=== PATIENT | male | born 1990 | race Caucasian/White ===

== ENCOUNTER 2020-04-19 21:12 | Outpatient (CLI) | payer OTHER | END 2020-04-19 21:13 | disposition critical access hospital (66) | LOC: EMS 21:12 | PROVIDERS: ATTEND Surgery | DX: R41.82 Altered mental status, unspecified (principal) | CPT/HCPCS: A0425; A0427 ==

== ENCOUNTER 2020-04-19 21:29 | Emergency (ER) | payer OTHER ==
--- NOTE | 2020-04-19 21:34 | ED Physician Documentation ---
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 s.o. called 911 and told EMS patient drank approximately 3/4 of a bottle of marijuana-containing soda (100mg total in bottle, so approximately 75mg intake). This was approximately 2 hours ASSISTANT MERCHANDISER. He subsequently told s.o. he didn't feel well and lay down and exhibited decreasing level of responsiveness and thus she called 911. He arrives nonverbal but in NAD. He follows simple commands (open eyes, open mouth), but does not answer any questions and falls asleep rapidly. Review of Systems Unable to obtain: Intoxicated PD PAST MEDICAL HISTORY - Past Medical History Past Medical History: No - Present Medications Home Medications: Ambulatory Orders Medication Instructions Recorded Confirmed Home Medications Unobtainable 04/19/20 04/19/20 [HOME MEDICATIONS UNOBTAINABLE] - Allergies Allergies/Adverse Reactions: Allergies Allergy/AdvReac Type Severity Reaction Status Date / Time Unable to Assess Allergy Verified 04/19/20 21:39 - Living Situation Living Situation: reports: With spouse/s.o. Living Arrangement: reports: At home PD ED PE NORMAL - Vitals Vital signs reviewed: Yes - General General: No acute distress, Well developed/nourished, Other (asleep, awakes to voice, follows few simple commands but does not verbalize, falls asleep rapidly) - HEENT HEENT: Atraumatic, PERRL, EOMI, Moist mucous membranes - Neck Neck: Supple, no meningeal sign - Cardiac Cardiac: RRR, No murmur - Respiratory Respiratory: No respiratory distress, Clear bilaterally - Abdomen Abdomen: Soft, Non tender, Non distended - Derm Derm: Normal color, Warm and dry - Neuro Eye Opening: To Voice Motor: Obeys Commands Verbal: None GCS Score: 10 Results - Vitals Vitals: Vital Signs - 24 hr 04/19/20 04/19/20 04/20/20 21:30 22:57 03:31 Temperature 36.4 C L Heart Rate 69 56 L 80 Respiratory 14 16 14 Rate Blood Pressure 126/69 109/64 O2 Saturation 96 97 97 04/20/20 03:47 Temperature Heart Rate 81 Respiratory 18 Rate Blood Pressure 121/68 O2 Saturation 99 Oxygen O2 Source Room air - Labs Labs: Laboratory Tests 04/19/20 04/19/20 21:43 21:43 WBC 8.8 RBC 4.39 L Hgb 13.4 L Hct 39.0 L MCV 88.8 MCH 30.5 MCHC 34.4 RDW 11.9 L Plt Count 207 MPV 10.2 Neut # (Auto) 4.8 Lymph # (Auto) 3.2 [place] # (Auto) 0.5 Eos # (Auto) 0.1 Baso # (Auto) 0.1 Absolute Nucleated RBC 0.00 Nucleated RBC % 0.0 Sodium 136 Potassium 3.1 L Chloride 101 Carbon Dioxide 27 Anion Gap 8.0 BUN 19 Creatinine 1.2 Estimated GFR (MDRD) 71 L Glucose 131 H Calcium 9.0 Total Bilirubin 0.5 AST 22 ALT 19 Alkaline Phosphatase 52 Total Protein 6.8 Albumin 4.6 Globulin 2.2 Albumin/Globulin Ratio 2.1 Lipase 35 Ethyl Alcohol < 5.0 PD MEDICAL DECISION MAKING - ED course Complexity details: reviewed results, re-evaluated patient, considered differential, d/w patient ED course: patient became increasingly awake and alert during ED stay, conversant. He tells me he recalls the events of the evening. Denies pain, denies injury. He says he has had the same product (drink with marijuana in it) before without same effect as what happened tonight. Denies other ingestions such as alcohol or other drugs. Departure - Departure Disposition: 01 Home, Self Care Clinical Impression: Overdose of marijuana Condition: Good Instructions: ED Overdose Accidental Discharge Date/Time: 04/20/20 04:25
[2020-04-19] MEDS ORDERED: SODIUM CHLORIDE 0.9% 1,000 ML IV STA (21:38)
[2020-04-19 21:48] LABS: BASOPHILS # (AUTO) 0.1 10^3/uL (0.0-0.1); BASOPHILS % (AUTO) 0.6 %; EOSINOPHILS # (AUTO) 0.1 10^3/uL (0.0-0.7); EOSINOPHILS % (AUTO) 1.4 %; HGB - HEMOGLOBIN 13.4 g/dL (14.0-18.0); LYMPHOCYTES # (AUTO) 3.2 10^3/uL (1.5-3.5); LYMPHOCYTES % (AUTO) 36.5 %; MEAN CORPUSCULAR HEMOGLOBIN 30.5 pg (27.0-31.0); MEAN CORPUSCULAR HGB CONC 34.4 g/dL (32.0-36.0); MEAN CORPUSCULAR VOLUME 88.8 fL (80.0-94.0); MEAN PLATELET VOLUME 10.2 fL (7.4-11.4); MONOCYTES # (AUTO) 0.5 10^3/uL (0.0-1.0); MONOCYTES % (AUTO) 6.2 %; NEUTROPHILS # (AUTO) 4.8 10^3/uL (1.5-6.6); NEUTROPHILS % (AUTO) 54.8 %; PLT - PLATELET COUNT 207 10^3/uL (130-450); RED BLOOD COUNT 4.39 10^6/uL (4.70-6.10); RED CELL DISTRIBUTION WIDTH 11.9 % (12.0-15.0); WHITE BLOOD COUNT 8.8 x10^3/uL (4.8-10.8)
[2020-04-19 22:02] LABS: ALBUMIN 4.6 g/dL (3.2-5.5); ALBUMIN/GLOBULIN RATIO 2.1 (1.0-2.2); ALKALINE PHOSPHATASE 52 IU/L (42-121); ALT ALANINE AMINOTRANSFERASE 19 IU/L (10-60); AST ASPARTATE AMINOTRANSFERASE 22 IU/L (10-42); BILIRUBIN,TOTAL 0.5 mg/dL (0.2-1.0); BUN - BLOOD UREA NITROGEN 19 mg/dL (6-20); CARBON DIOXIDE - CO2 27 mmol/L (21-32); CHLORIDE 101 mmol/L (101-111); CREATININE 1.2 mg/dL (0.6-1.2); GLUCOSE 131 mg/dL (70-100); LIPASE 35 U/L (22-51); SODIUM 136 mmol/L (135-145); TOTAL PROTEIN 6.8 g/dL (6.7-8.2)
[2020-04-20 03:48] VITALS: BP 121/68
[2020-04-20] MEDS ORDERED: ONDANSETRON ODT 4 MG TABLET TL STA (04:03)
== END 2020-04-20 04:25 | disposition home or self-care (01) ==
LOC: EDUNIT# → ED 21:29
DX: T40.7X1A Poisoning by cannabis (derivatives), accidental (unintentional), initial encounter (principal); R40.0 Somnolence; F12.929 Cannabis use, unspecified with intoxication, unspecified; Y92.009 Unspecified place in unspecified non-institutional (private) residence as the place of occurrence of the external cause
CPT/HCPCS: 36415; 80053; 80320; 83690; 85025; 96360; 99281; 99283; Q0162